=== PATIENT | male | born 1955 | race Caucasian/White ===

== ENCOUNTER 2016-07-11 09:26 | Emergency (ER) | payer MEDICARE, OTHER ==
[2008-11-09 06:18] VITALS: BP 130/73
[~2016-07-11] VITALS: Ht 172.7 cm; Wt 106.8 kg
[~2016-07-11 09:26] MED LIST: ADVIL 200MG TA200 MG PO; ASPIR-LOW81 MG PO; DIABETA 5MG5 MG/TAB PO; FORTAMET500 MG PO; GLUCOPHAGE1000 MG PO; LISINOPRIL/HCTZ1 TAB PO; LUTEIN20 MG PO; PRESERVISION
[2016-07-11 09:30] VITALS: BP 173/83; TEMP 98.1
[2016-07-11 10:05] LABS: PH 5 (5-8); SQUAMOUS EPITHELIAL 0-2 /hpf; URINE APPEARANCE Hazy; URINE BACTERIA None Seen /hpf; URINE BILIRUBIN Negative (NEGATIVE); URINE BLOOD Negative (NEGATIVE); URINE COLOR Yellow; URINE GLUCOSE 3+ (NEGATIVE); URINE KETONE Trace (NEGATIVE); URINE RBC 0-2 /hpf; URINE UROBILINOGEN Negative (NEGATIVE); URINE WBC 0-2 /hpf
[2016-07-11] MEDS ORDERED: PRINZIDE 12.5 M1 TAB PO (10:20)
[2016-07-11] MEDS ORDERED: VENTOLIN0.09 MG IH (10:21)
[2016-07-11] MEDS ORDERED: FLONASE NASAL S16 GM NS (10:21)
[2016-07-11 10:30] LABS: BASO # 0.1 (0.0-0.2); BASO % 0.5 % (0.0-2.0); EOS # 0.2 (0.0-0.7); EOS % 1.6 % (0-4.0); GRAN # 8.8 (1.4-6.5); GRAN % 72.9 % (42.2-75.2); HEMATOCRIT 42.2 % (42.0-52.0); HEMOGLOBIN 14.7 g/dl (13.5-18.0); LYMPH % 16.6 % (20.0-51.0); MEAN CELL VOLUME 87 fl (80.0-100.0); MEAN CORPUSCULAR HEMOGLOBIN 30 pg (27.0-31.0); MEAN CORPUSCULAR HGB CONC 35 g/dl (33.0-37.0); MEAN PLATELET VOLUME 10.2 fl (7.4-10.4); MONO # 0.9 (0.1-0.6); MONO % 7.7 % (1.7-9.3); PLATELET COUNT 307 K/mm3 (130-400); RED BLOOD COUNT 4.85 M/mm3 (4.20-5.60); REDCELL DISTRIBUTION WIDTH-CV 12.5 % (11.5-14.5)
[2016-07-11 10:31] LABS: ADJUSTED CALCIUM 10.6 mg/dL (8.4-10.2); ALBUMIN 4.4 gm/dL (3.5-5.0); BILIRUBIN,TOTAL 1.2 mg/dL (0.0-1.0); CALCIUM 10.9 mg/dL (8.4-10.2); CREATININE, serum 0.79 mg/dL (0.66-1.25); TOTAL PROTEIN 8.5 gm/dL (6.4-8.2)
[2016-07-11] MEDS ORDERED: CIPRO 500MG TA500 MG PO (12:28)
[2016-07-11] MEDS ORDERED: FLAGYL500 MG PO (12:28)
[2016-07-11] MEDS ORDERED: NORCO 325 MG-51 TAB PO (12:28)
[2016-07-11] MEDS ORDERED: ZOFRAN 4MG T4 MG/TAB PO (12:28)
[2016-07-11 12:51] VITALS: PULSE 70
== END 2016-07-11 12:51 | disposition home or self-care (01) ==
LOC: COL.ER 09:26
PROVIDERS: Emergency Medicine
DX: K57.32 Diverticulitis of large intestine without perforation or abscess without bleeding (principal); I10 Essential (primary) hypertension; E11.9 Type 2 diabetes mellitus without complications; Z90.49 Acquired absence of other specified parts of digestive tract
CPT/HCPCS: J1170; J2405; J7030; Q9967

== ENCOUNTER → 2017-09-17 | Outpatient (CLI) | payer MEDICARE, OTHER ==
[~2017-09-17] MED LIST changes: +CIPRO 500MG TA500 MG PO; +FLAGYL500 MG PO; +FLONASE NASAL S16 GM NS; +NORCO 325 MG-51 TAB PO; +PRINZIDE 12.5 M1 TAB PO; +VENTOLIN0.09 MG IH; +ZOFRAN 4MG T4 MG/TAB PO
== END ==
LOC: COL.RAD 13:56
DX: M16.12 Unilateral primary osteoarthritis, left hip (principal)
CPT/HCPCS: J3301; Q9967

== ENCOUNTER → 2018-05-06 | Outpatient (CLI) | payer MEDICARE | LOC: COL.RAD 13:57 | DX: M16.12 Unilateral primary osteoarthritis, left hip (principal) | CPT/HCPCS: J3301; Q9967 ==

== ENCOUNTER → 2018-09-03 | Outpatient (CLI) | payer MEDICARE | LOC: COL.RAD 10:25 | DX: M16.12 Unilateral primary osteoarthritis, left hip (principal) | CPT/HCPCS: J3301; Q9967 ==

== ENCOUNTER → 2018-12-07 | Outpatient (CLI) | payer MEDICARE | LOC: COL.RAD 10:30 | DX: M16.12 Unilateral primary osteoarthritis, left hip (principal) | CPT/HCPCS: J3301; Q9967 ==

== ENCOUNTER 2019-12-30 02:44 | Day surgery (SDC) | payer MEDICARE ==
[2019-12-30] VITALS (9 sets, daily range): BP systolic 117–143; BP diastolic 58–70; PULSE 74–85; TEMP 98.2
[~2019-12-30] VITALS: Ht 172.7 cm; Wt 96.7 kg
[2019-12-30 03:27] LABS: COLLECTION METHOD CLEAN CATCH
[2019-12-30 03:54] LABS: BASO % 0.3 % (0.0-2.0); EOS % 0.2 % (0-4.0); GRAN # 11.6 (1.4-6.5); GRAN % 86.5 % (42.2-75.2); HEMOGLOBIN 11.4 g/dl (13.5-18.0); LYMPH % 7.5 % (20.0-51.0); MEAN CELL VOLUME 88 fl (80.0-100.0); MEAN CORPUSCULAR HEMOGLOBIN 30 pg (27.0-31.0); MEAN CORPUSCULAR HGB CONC 34 g/dl (33.0-37.0); MONO # 0.7 (0.1-0.6); MONO % 5.1 % (1.7-9.3); PLATELET COUNT 281 K/mm3 (130-400); RED BLOOD COUNT 3.85 M/mm3 (4.20-5.60); REDCELL DISTRIBUTION WIDTH-CV 13.1 % (11.5-14.5)
[2019-12-30 04:02] LABS: AMORPHOUS CRYSTAL Present /uL; PH 5 (5-8); SQUAMOUS EPITHELIAL None Seen /hpf; URINE APPEARANCE Cloudy; URINE BACTERIA None Seen /hpf; URINE BILIRUBIN Negative (NEGATIVE); URINE BLOOD 3+ (NEGATIVE); URINE COLOR Amber; URINE GLUCOSE 3+ (NEGATIVE); URINE KETONE Trace (NEGATIVE); URINE LEUKOCYTE ESTERASE Negative (NEGATIVE); URINE NITRATE Negative (NEGATIVE); URINE PROTEIN(semi-quant) 2+ (NEGATIVE); URINE RBC >50 /hpf; URINE UROBILINOGEN Negative (NEGATIVE)
[2019-12-30 04:03] LABS: ALANINE AMINOTRANSFERASE 35 U/L (4-49); ALBUMIN 4.3 gm/dL (3.5-5.0); ALKALINE PHOSPHATASE 85 U/L (50-136); ANION GAP 12 mmol/L (7-16); AST,SGOT 23 U/L (15-37); BILIRUBIN,TOTAL 0.7 mg/dL (0.0-1.0); BLOOD UREA NITROGEN 19 mg/dL (9-20); C-REACTIVE PROTEIN < 0.5 mg/dL (0.0-0.9); CALCIUM 9.7 mg/dL (8.4-10.2); CARBON DIOXIDE 22 mmol/L (22-30); CHLORIDE 99 mmol/L (98-107); CREATININE, serum 0.93 (0.66-1.25); GLUCOSE 307 mg/dL (74-106); POTASSIUM 4.3 mmol/L (3.4-5.0); SODIUM 133 mmol/L (137-145); TOTAL PROTEIN 8.2 gm/dL (6.4-8.2)
[2019-12-30] MEDS ORDERED: ROXICODONE 55 MG/TAB PO (04:21)
[2019-12-30] MEDS ORDERED: XARELTO10 MG PO (04:22)
--- NOTE | 2019-12-30 07:19 | NUR ---
PT ARRIVED TO THE UNIT FROM ER AT 0640 VIA WHEELCHAIR. PT HAS CALL LIGHT WITHIN REACH.
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
--- NOTE | 2019-12-30 10:46 | NUR ---
Patient arrived back to floor from PACU via bed. Patient is sleepy but alert and oriented, remains appropriate. Patient denies pain or needs. Post op checks initated. Call light within reach.
--- NOTE | 2019-12-30 18:35 | NUR ---
Patient resting in bed at this time. Patient remains alert and oriented. Patient reports that pain is well controlled and denies needs. Call light within reach.
--- NOTE | 2019-12-30 19:05 | NUR ---
Report received from Claudia GALLO. Pt sitting up in bed watching tv. Requests boot be placed back on right leg. This RN assisted pt in putting boot on. Denies other needs at this time. Call light in reach.
--- NOTE | 2019-12-30 20:45 | NUR ---
Assessment completed. Pt lying in bed upon entering room. Up to bathroom SBA with wheelchair. IV fluids started at 125 ml/hr. Denies pain or other concerns. Boot in place to RLE. Will continue to monitor.
[2019-12-31] VITALS: BP 135/67; PULSE 92; TEMP 97.9
[2019-12-31 04:00] VITALS: BP 132/69; PULSE 68; TEMP 97.7
--- NOTE | 2019-12-31 05:47 | NUR ---
Pt had uneventful night. Fluids running. Up SBA to wheelchair to use restroom twice overnight. Denies pain or discomfort. Urine pale pink.
[2019-12-31 07:27] VITALS: BP 142/63; PULSE 83; TEMP 98
--- NOTE | 2019-12-31 08:00 | NUR ---
Patient sitting up in bed eating breakfast. Alert and oriented x 3. Assessment complete. RLE in boot. IV fluids infusing per orders to left AC IV. Patient up to restroom with wheelchair and stand by assit. Denies further needs at this time.
[2019-12-31 12:16] VITALS: BP 163/69; PULSE 82; TEMP 97.9
--- NOTE | 2019-12-31 13:39 | NUR ---
Chaplain cordova and offered support with patient.
--- NOTE | 2019-12-31 14:00 | NUR ---
Discharge education provided to patient. Educated on scheduling follow up and new medications. INT discontinued, catheter tip intact. Denies pain or further needs at this time. Patient encouraged to increase fluid intake. Will call when ride is here.
--- NOTE | 2019-12-31 14:30 | NUR ---
Patient out by wheelchair with surgical staff and spouse. Denies further needs at this time.
== END 2019-12-31 14:30 | disposition home or self-care (01) ==
LOC: COL.ER 02:44 → SDCO 05:36 → SURG 05:36 → COL.ER 05:36 → SURG 05:36 → SDCO 12-31 14:30 → SURG 12-31 14:30
PROVIDERS: Emergency Medicine
DX: N13.2 Hydronephrosis with renal and ureteral calculous obstruction (principal); R82.81 Pyuria; D72.829 Elevated white blood cell count, unspecified; R35.0 Frequency of micturition; M48.56XA Collapsed vertebra, not elsewhere classified, lumbar region, initial encounter for fracture; M43.06 Spondylolysis, lumbar region; K57.90 Diverticulosis of intestine, part unspecified, without perforation or abscess without bleeding; E11.9 Type 2 diabetes mellitus without complications; I10 Essential (primary) hypertension; Z79.4 Long term (current) use of insulin; Z90.49 Acquired absence of other specified parts of digestive tract; Z90.79 Acquired absence of other genital organ(s); Z88.8 Allergy status to other drugs, medicaments and biological substances; Z79.01 Long term (current) use of anticoagulants; Z79.899 Other long term (current) drug therapy; Z96.653 Presence of artificial knee joint, bilateral; Z85.46 Personal history of malignant neoplasm of prostate
CPT/HCPCS: C1769; C2617; G0378; J0690; J0696; J1100; J1815; J1885; J1956; J2270; J2405; J2704; J3010; J7030; Q9967

== ENCOUNTER 2020-01-27 16:18 | Emergency (ER) | payer MEDICARE ==
[2008-11-09 06:18] VITALS: BP 130/73
[~2020-01-27] VITALS: Ht 172.7 cm; Wt 95.5 kg
[~2020-01-27 16:18] MED LIST changes: +ROXICODONE 55 MG/TAB PO; +XARELTO10 MG PO
[2020-01-27 16:39] VITALS: TEMP 96.8
[2020-01-27 17:33] LABS: BASO % 0.3 % (0.0-2.0); EOS # 0.1 (0.0-0.7); EOS % 0.8 % (0-4.0); GRAN # 9.8 (1.4-6.5); GRAN % 81.5 % (42.2-75.2); LYMPH # 1.1 (1.2-3.4); LYMPH % 9.2 % (20.0-51.0); MEAN CELL VOLUME 85 fl (80.0-100.0); MEAN CORPUSCULAR HEMOGLOBIN 29 pg (27.0-31.0); MEAN CORPUSCULAR HGB CONC 34 g/dl (33.0-37.0); MEAN PLATELET VOLUME 10.3 fl (7.4-10.4); MONO # 0.9 (0.1-0.6); MONO % 7.9 % (1.7-9.3); PLATELET COUNT 286 K/mm3 (130-400); RED BLOOD COUNT 4.12 M/mm3 (4.20-5.60); REDCELL DISTRIBUTION WIDTH-CV 13.4 % (11.5-14.5)
[2020-01-27 17:37] LABS: HEMATOCRIT 34.9 % (42.0-52.0)
[2020-01-27 17:39] LABS: INR 1.4 (0.8-3.0); PROTHROMBIN TIME 15.4 SECONDS (9.7-12.8)
[2020-01-27 17:48] LABS: ALANINE AMINOTRANSFERASE 32 U/L (4-49); ALKALINE PHOSPHATASE 71 U/L (50-136); ANION GAP 11 mmol/L (7-16); AST,SGOT 27 U/L (15-37); BILIRUBIN,TOTAL 0.8 mg/dL (0.0-1.0); BLOOD UREA NITROGEN 20 mg/dL (9-20); CALCIUM 9.3 mg/dL (8.4-10.2); CARBON DIOXIDE 24 mmol/L (22-30); CHLORIDE 99 mmol/L (98-107); CREATININE, serum 1.04 (0.66-1.25); GLUCOSE 219 mg/dL (74-106); POTASSIUM 3.7 mmol/L (3.4-5.0); SODIUM 135 mmol/L (137-145); TOTAL PROTEIN 7.4 gm/dL (6.4-8.2)
[2020-01-27 17:52] LABS: C-REACTIVE PROTEIN < 0.5 mg/dL (0.0-0.9)
[2020-01-27 18:09] LABS: COLLECTION METHOD CLEAN CATCH
[2020-01-27 18:16] LABS: MUCOUS Present /lpf; PH 6 (5-8); URINE APPEARANCE Hazy; URINE BACTERIA None Seen /hpf; URINE BILIRUBIN Negative (NEGATIVE); URINE BLOOD Negative (NEGATIVE); URINE COLOR Yellow; URINE GLUCOSE Negative (NEGATIVE); URINE KETONE 1+ (NEGATIVE); URINE LEUKOCYTE ESTERASE Negative (NEGATIVE); URINE NITRATE Negative (NEGATIVE); URINE PROTEIN(semi-quant) 1+ (NEGATIVE); URINE RBC 0-2 /hpf; URINE UROBILINOGEN Negative (NEGATIVE)
[2020-01-27] MEDS ORDERED: ZOFRAN ODT4 MG PO (19:12)
[2020-01-27] MEDS ORDERED: PERCOCET 325 MG1 TA2 PO (19:12)
[2020-01-27 19:56] VITALS: BP 129/93; PULSE 91
== END 2020-01-27 19:50 | disposition home or self-care (01) ==
LOC: COL.ER 16:18
PROVIDERS: Emergency Medicine
DX: N20.1 Calculus of ureter (principal); N20.0 Calculus of kidney; E11.9 Type 2 diabetes mellitus without complications; I10 Essential (primary) hypertension; Z87.442 Personal history of urinary calculi; Z79.01 Long term (current) use of anticoagulants; Z79.84 Long term (current) use of oral hypoglycemic drugs
CPT/HCPCS: J1170; J1885; J2405; J3010; J7030; Q9967

== ENCOUNTER 2020-02-17 22:01 | Emergency (ER) | payer MEDICARE ==
[2008-11-09 06:18] VITALS: BP 130/73
[~2020-02-17] VITALS: Ht 172.7 cm; Wt 95.5 kg
[~2020-02-17 22:01] MED LIST changes: +PERCOCET 325 MG1 TA2 PO; +ZOFRAN ODT4 MG PO
[2020-02-17 22:10] VITALS: TEMP 98.7
[2020-02-17 22:50] LABS: BASO % 0.4 % (0.0-2.0); EOS # 0.1 (0.0-0.7); EOS % 1.4 % (0-4.0); GRAN # 6.7 (1.4-6.5); GRAN % 71.1 % (42.2-75.2); HEMOGLOBIN 10.7 g/dl (13.5-18.0); LYMPH # 1.5 (1.2-3.4); LYMPH % 15.4 % (20.0-51.0); MEAN CELL VOLUME 85 fl (80.0-100.0); MEAN CORPUSCULAR HEMOGLOBIN 29 pg (27.0-31.0); MEAN CORPUSCULAR HGB CONC 34 g/dl (33.0-37.0); MEAN PLATELET VOLUME 10.1 fl (7.4-10.4); MONO # 1.1 (0.1-0.6); MONO % 11.4 % (1.7-9.3); PLATELET COUNT 273 K/mm3 (130-400); RED BLOOD COUNT 3.68 M/mm3 (4.20-5.60); REDCELL DISTRIBUTION WIDTH-CV 13.5 % (11.5-14.5)
[2020-02-17 22:51] LABS: HEMATOCRIT 31.4 % (42.0-52.0)
[2020-02-17 22:59] LABS: ALBUMIN 4.1 gm/dL (3.5-5.0); BILIRUBIN,TOTAL 1.1 mg/dL (0.0-1.0); CALCIUM 9.2 mg/dL (8.4-10.2); CREATININE, serum 1.62 (0.66-1.25); POTASSIUM 3.8 mmol/L (3.4-5.0); TOTAL PROTEIN 7.3 gm/dL (6.4-8.2)
[2020-02-17 22:59] LABS: COLLECTION METHOD CLEAN CATCH
[2020-02-17 23:09] LABS: MUCOUS Present /lpf; PH 5 (5-8); SQUAMOUS EPITHELIAL 0-2 /hpf; URINE APPEARANCE Clear; URINE BACTERIA None Seen /hpf; URINE BILIRUBIN Negative (NEGATIVE); URINE BLOOD Negative (NEGATIVE); URINE COLOR Yellow; URINE GLUCOSE 1+ (NEGATIVE); URINE KETONE 1+ (NEGATIVE); URINE LEUKOCYTE ESTERASE Negative (NEGATIVE); URINE NITRATE Negative (NEGATIVE); URINE PROTEIN(semi-quant) 2+ (NEGATIVE); URINE RBC 0-2 /hpf
[2020-02-18] MEDS ORDERED: ZOFRAN ODT4 MG PO (01:58)
[2020-02-18] MEDS ORDERED: NORCO 325 MG-51 TAB PO (01:58)
[2020-02-18] MEDS ORDERED: FLOMAX 0.40.4 MG/CAP PO (01:58)
[2020-02-18 06:51] VITALS: BP 137/86; PULSE 62
== END 2020-02-18 06:53 | disposition home or self-care (01) ==
LOC: COL.ER 22:01
PROVIDERS: Emergency Medicine
DX: N20.0 Calculus of kidney (principal); Z87.442 Personal history of urinary calculi; Z79.84 Long term (current) use of oral hypoglycemic drugs
CPT/HCPCS: J1815; J2270; J3480; J7030

== ENCOUNTER 2021-04-11 03:37 | Observation (INO) | payer MEDICARE ==
[2008-11-09 06:18] VITALS: BP 130/73
[~2021-04-11] VITALS: Ht 172.7 cm; Wt 90.5 kg
[~2021-04-11 03:37] MED LIST changes: +FLOMAX 0.40.4 MG/CAP PO
[2021-04-11 04:09] LABS: COLLECTION METHOD CLEAN CATCH
[2021-04-11 04:11] LABS: BASO # 0.1 K/mm3 (0.0-0.2); BASO % 0.9 % (0.0-2.0); EOS # 0.8 K/mm3 (0.0-0.7); EOS % 7.1 % (0.0-4.0); GRAN # 6.8 K/mm3 (1.4-6.5); GRAN % 61.6 % (42.2-75.2); HEMATOCRIT 37.5 % (42.0-52.0); HEMOGLOBIN 12.9 g/dl (13.5-18.0); LYMPH # 2.2 K/mm3 (1.2-3.4); LYMPH % 20.2 % (20.0-51.0); MEAN CELL VOLUME 88 fl (80.0-100.0); MEAN CORPUSCULAR HEMOGLOBIN 30 pg (27-31); MEAN CORPUSCULAR HGB CONC 34 g/dl (33.0-37.0); MEAN PLATELET VOLUME 10.1 fl (7.4-10.4); MONO # 1.1 K/mm3 (0.1-0.6); MONO % 9.9 % (1.7-9.3); PLATELET COUNT 305 K/mm3 (130-400); RED BLOOD COUNT 4.24 M/mm3 (4.20-5.60); REDCELL DISTRIBUTION WIDTH-CV 12.7 % (11.5-14.5)
[2021-04-11 04:16] LABS: PH 5 (5-8); SQUAMOUS EPITHELIAL 0-2 /hpf (0-10); URINE APPEARANCE Clear (CLEAR/HAZY); URINE BACTERIA None Seen /hpf (NONE SEEN); URINE BILIRUBIN Negative (NEGATIVE); URINE BLOOD 3+ (NEGATIVE); URINE COLOR Straw (YELLOW); URINE GLUCOSE 1+ (NEGATIVE); URINE KETONE Negative (NEGATIVE); URINE LEUKOCYTE ESTERASE Negative (NEGATIVE); URINE NITRATE Negative (NEGATIVE); URINE PROTEIN(semi-quant) 1+ (NEGATIVE); URINE RBC 20-50 /hpf (0-2); URINE UROBILINOGEN Negative (NEGATIVE)
[2021-04-11 04:40] LABS: ALBUMIN 3.8 gm/dL (3.4-4.8); BILIRUBIN,TOTAL 1.2 mg/dL (0.2-1.2); C-REACTIVE PROTEIN 0.36 mg/dL (0.00-0.50); CALCIUM 9.8 mg/dL (8.4-10.2); CREATININE, serum 1.5 mg/dL (0.72-1.25); POTASSIUM 3.8 mmol/L (3.5-4.5); TOTAL PROTEIN 7.9 gm/dL (6.2-8.1)
[2021-04-11] MEDS ORDERED: ZOLOFT 50MG50 MG PO (08:32)
[2021-04-11] MEDS ORDERED: TRULICITY3 MG/0.5 M SQ (08:33)
[2021-04-11 10:35] VITALS: BP 151/75; PULSE 69; TEMP 97.4
[2021-04-11 13:15] VITALS: BP 112/58; PULSE 67
--- NOTE | 2021-04-11 15:25 | NUR ---
1040-PT AMBULATED TO BATHROOM WITH STEADY GAIT. PT VOIDED. 1130-PT RESTING COMFORTABLY. DENIES ANY NEEDS AT THIS TIME. 1230-PT RESTING COMFORTABLY. DENIES ANY NEEDS AT THIS TIME. 1300-PT AMBULATED TO BATHROOM WITH STEADY GAIT. PT VOIDED.
[2021-04-11] MEDS ORDERED: PERCOCET 325 MG1 TA2 PO (15:32)
[2021-04-11 16:00] VITALS: BP 139/72; PULSE 78
[2021-04-11 16:15] VITALS: BP 163/90; PULSE 79
[2021-04-11 16:30] VITALS: BP 144/72; PULSE 70; TEMP 97.6
[2021-04-11 16:35] VITALS: BP 148/80; PULSE 85; TEMP 98.3
--- NOTE | 2021-04-11 17:32 | NUR ---
1600 Pt returned to bay [address] via cart. Alert and oriented. Post op vitals started. Apple juice and muffin provided. Pt denies any pain. Pt up to restroom, able to void without difficulty. Pt sitting on side of bed. called for ride home. 1615 Pt up to bathroom, able to void. Tolerating food and drink well. 1630 Pt resting low fowlers in bed. No complications noted. 1655 IV discontinued without complication. Reviewed discharge instruction and education material. Pt verbalized understanding and denies any questions. Pt allowed to dress while waiting for to arrive. 1732 Pt transfered via wheel chair to personal vehicle to be driven home by son and .
== END 2021-04-11 15:31 | disposition home or self-care (01) ==
LOC: COL.ER 03:37 → INPTSU 07:54
PROVIDERS: Emergency Medicine; ADMIT Urology
DX: N20.1 Calculus of ureter (principal); I10 Essential (primary) hypertension; K21.9 Gastro-esophageal reflux disease without esophagitis; G89.29 Other chronic pain; M54.9 Dorsalgia, unspecified; E11.9 Type 2 diabetes mellitus without complications; F32.A Depression, unspecified; F41.9 Anxiety disorder, unspecified; Z85.46 Personal history of malignant neoplasm of prostate; Z90.79 Acquired absence of other genital organ(s); Z79.84 Long term (current) use of oral hypoglycemic drugs; Z79.899 Other long term (current) drug therapy
CPT/HCPCS: C1769; C2617; J0690; J1170; J2370; J2405; J2704; J2765; J3010; J7030

== ENCOUNTER 2021-05-02 10:35 | Day surgery (SDC) | payer MEDICARE ==
[2021-05-02] VITALS (9 sets, daily range): BP systolic 155–167; BP diastolic 60–80; PULSE 75–89; TEMP 97.4–98
[~2021-05-02] VITALS: Ht 172.7 cm; Wt 95.6 kg
[~2021-05-02 10:35] MED LIST changes: +TRULICITY3 MG/0.5 M SQ; +ZOLOFT 50MG50 MG PO
[2021-05-02 11:27] LABS: BASO # 0.1 K/mm3 (0.0-0.2); BASO % 0.6 % (0.0-2.0); EOS # 0.3 K/mm3 (0.0-0.7); EOS % 2.8 % (0.0-4.0); GRAN # 7.9 K/mm3 (1.4-6.5); GRAN % 75.2 % (42.2-75.2); HEMATOCRIT 39.1 % (42.0-52.0); HEMOGLOBIN 13.5 g/dl (13.5-18.0); LYMPH # 1.5 K/mm3 (1.2-3.4); LYMPH % 14.1 % (20.0-51.0); MEAN CELL VOLUME 90 fl (80.0-100.0); MEAN CORPUSCULAR HEMOGLOBIN 31 pg (27-31); MEAN CORPUSCULAR HGB CONC 35 g/dl (33.0-37.0); MEAN PLATELET VOLUME 10.8 fl (7.4-10.4); MONO # 0.7 K/mm3 (0.1-0.6); PLATELET COUNT 252 K/mm3 (130-400); RED BLOOD COUNT 4.37 M/mm3 (4.20-5.60); REDCELL DISTRIBUTION WIDTH-CV 12.9 % (11.5-14.5)
[2021-05-02] MEDS ORDERED: NORCO 325 MG-51 TAB PO (11:29)
[2021-05-02] MEDS ORDERED: PERCOCET 325 MG1 TA2 PO (11:31)
[2021-05-02 11:45] LABS: ALBUMIN 3.9 gm/dL (3.4-4.8); CALCIUM 9.6 mg/dL (8.4-10.2); CREATININE, serum 1.56 mg/dL (0.72-1.25); POTASSIUM 4.4 mmol/L (3.5-4.5); TOTAL PROTEIN 7.9 gm/dL (6.2-8.1)
--- NOTE | 2021-05-02 18:30 | NUR ---
PATIENT ADMITED INTO ROOM 347 POST OP. UPON ARRIVAL PATIENT WENT TO BATHROOM AND SAT FOR A LITTLE WHILE, PATIENT WAS ABLE TO VOID A LARGE AMOUNT. PATIENT IN BED, AT BEDSIDE. VSS. NO COMPLAINTS. LIQUIDS AT BEDSIDE. ORIENTED TO ROOM. CALL LIGHT IN REACH. PROPERTY DEVELOPER TAKING OVER.
--- NOTE | 2021-05-02 18:50 | NUR ---
CALLED FOR SUPPER TRAY BEFORE KITCHEN CLOSES.
--- NOTE | 2021-05-02 23:16 | NUR ---
Patient assessed around 1929. Given PRN Morphine for pain, and Zofran for nausea. IV to right wrist with IV fluids per orders. Given PRN Percocet around 2119 as requested for pain. Voices no further questions, needs, or concerns at this time. Urinating blood tinged urine. In bed with call light within reach.
[2021-05-03 00:34] VITALS: BP 152/60; PULSE 89; TEMP 98.2
[2021-05-03 03:41] VITALS: BP 138/76; PULSE 66; TEMP 98.5
--- NOTE | 2021-05-03 06:11 | NUR ---
Patient has received PRN Percocet and Morphine for pain this shift, as well as Zofran for nausea. Urine had been blood tinged, more fausto color at this time. Voices no questions, needs, or concerns at this time. In bed with call light within reach.
[2021-05-03 07:58] VITALS: BP 130/48; PULSE 70; TEMP 98.3
--- NOTE | 2021-05-03 10:31 | NUR ---
Initial visit attempt; Patient was Indisposed, Clay Digger left card letting patient know of the availability of spiritual care at our hospital.
[2021-05-03] MEDS ORDERED: NORCO 325 MG-51 TAB PO (10:59)
--- NOTE | 2021-05-03 11:56 | NUR ---
PATIENT'S IV REMOVED, INTACT. PATIENT'S DISCHARGE INSTRUCTIONS WERE REVIEWED WITH PATIENT. NO QUESTIONS AT THIS TIME. PATIENT SIGNED DISCHARGE INSTRUCTIONS. PATIENT ESCORTED OUT TO VEHICLE IN WHEELCHAIR BY STAFF.
== END 2021-05-03 11:56 | disposition home or self-care (01) ==
LOC: INPTSU 10:35 → SDCO 10:35 → SURG 10:35 → EDSTATUS 15:30 → SURG 18:30 → INPTSU 18:30 → SURG 18:30 → SDCO 05-03 11:56
PROVIDERS: Urology
DX: N20.2 Calculus of kidney with calculus of ureter (principal); N39.0 Urinary tract infection, site not specified; E11.9 Type 2 diabetes mellitus without complications; K21.9 Gastro-esophageal reflux disease without esophagitis; I10 Essential (primary) hypertension; F32.A Depression, unspecified; F41.9 Anxiety disorder, unspecified; Z90.79 Acquired absence of other genital organ(s); Z79.84 Long term (current) use of oral hypoglycemic drugs; Z79.899 Other long term (current) drug therapy; Z85.46 Personal history of malignant neoplasm of prostate; Z79.891 Long term (current) use of opiate analgesic
CPT/HCPCS: OP; C1769; C1894; C2617; J0690; J2270; J2405; J2704; J3010; J3480; J7120; Q9967

== ENCOUNTER 2023-12-06 13:11 | Emergency (ER) | payer MEDICARE ==
[~2023-12-06] VITALS: Ht 7 cm; Wt 90.9 kg
[2023-12-06 13:25] VITALS: TEMP 98.4
[2023-12-06] MEDS ORDERED: LR 1,000 ML IV ONE (13:45)
[2023-12-06] MEDS ORDERED: Ondansetron 4 MG/2 ML VIAL IV ONE (13:45)
[2023-12-06] MEDS ORDERED: Morphine 4 MG/ML VIAL IV ONE (13:45)
[2023-12-06 13:54] LABS: COLLECTION METHOD CLEAN CATCH
[2023-12-06 13:59] LABS: BASO % 0.3 % (0.0-2.0); EOS # 0.1 K/mm3 (0.0-0.7); EOS % 0.9 % (0.0-4.0); GRAN # 9.5 K/mm3 (1.4-6.5); GRAN % 76.1 % (42.2-75.2); HEMOGLOBIN 12.6 g/dl (13.5-18.0); LYMPH # 1.5 K/mm3 (1.2-3.4); LYMPH % 12.3 % (20.0-51.0); MEAN CELL VOLUME 90 fl (80.0-100.0); MEAN CORPUSCULAR HEMOGLOBIN 31 pg (27-31); MEAN CORPUSCULAR HGB CONC 34 g/dl (33.0-37.0); MEAN PLATELET VOLUME 10.4 fl (7.4-10.4); MONO # 1.3 K/mm3 (0.1-0.6); MONO % 10.1 % (1.7-9.3); PLATELET COUNT 310 K/mm3 (130-400); RED BLOOD COUNT 4.06 M/mm3 (4.20-5.60); REDCELL DISTRIBUTION WIDTH-CV 12.2 % (11.5-14.5)
[2023-12-06 14:00] LABS: HEMATOCRIT 36.6 % (42.0-52.0)
[2023-12-06 14:05] LABS: URINE APPEARANCE CLEAR (CLEAR/HAZY); URINE BLOOD TRACE (NEGATIVE); URINE COLOR YELLOW (YELLOW); URINE GLUCOSE NEGATIVE (NEGATIVE); URINE KETONE NEGATIVE (NEGATIVE); URINE NITRATE NEGATIVE (NEGATIVE); URINE PROTEIN(semi-quant) 3+ (NEGATIVE)
[2023-12-06 14:15] LABS: ALBUMIN 3.5 g/dL (3.4-4.8); BILIRUBIN,TOTAL 1.1 mg/dL (0.2-1.2); CALCIUM 9.8 mg/dL (8.4-10.2); CREATININE, serum 1.03 mg/dL (0.72-1.25); TOTAL PROTEIN 8.3 g/dl (6.2-8.1)
[2023-12-06] MEDS ORDERED: Iohexol 300 - 100 ML VIAL IV ONE (14:50)
[2023-12-06] MEDS ORDERED: NS 100 ML IV SCH (14:52)
[2023-12-06] MEDS ORDERED: Ketorolac 15 MG/ML VIAL IV ONE (15:00)
[2023-12-06] MEDS ORDERED: Amoxicillin/Clavulanate K+ 875/125 MG TAB PO ONE (15:45)
[2023-12-06] MEDS ORDERED: AMOXICILLIN 8751 TAB PO (15:53)
[2023-12-06 16:45] VITALS: BP 148/99; PULSE 86
== END 2023-12-06 16:45 | disposition home or self-care (01) ==
LOC: COL.ER 13:11
PROVIDERS: Emergency Medicine
DX: R45.851 Suicidal ideations (principal); F17.210 Nicotine dependence, cigarettes, uncomplicated
CPT/HCPCS: J1885; J2270; J2405; J7120; Q9967